=== PATIENT | female | born 1950 | race Caucasian/White ===

== ENCOUNTER 2017-07-25 12:32 | Emergency (ER) | payer OTHER ==
[~2017-07-25] VITALS: Ht 152.4 cm; Wt 72.6 kg
--- NOTE | ~2017-07-25 | EKG ---
[address] [address] ELECTROCARDIOGRAM REPORT Name: CARLI WOLF [id number] Admission: 07/25/17 Attend Phys: Discharge: Date of : 54 Report #: [id number] THIS REPORT FOR: //name// [facility] ED Test Date: 2017-07-25 Test Time: 13:20:32 Pat Name: CARLI WOLF Department: Room: Gender: F [employer] W[employer] Helper: Vashti BROWN : 1950 Requested By: Esa Dunbar Order Number: [id number] MD: Santiago Catherine Measurements Intervals [place] Rate: 60 P: -19 AL: 165 QRS: 16 QRSD: 101 T: 5 QT: 438 QTc: 438 Interpretive Statements Sinus rhythm No previous ECG available for comparison Electronically Signed On 07-25-2017 14:04:53 INFORMATICIST by Santiago Catherine [email or web address] <ELECTRONICALLY SIGNED> By: Santiago Catherine MD 07/25/17 1404 1320 1320 Santiago Catherine MD /FAHAD
[2017-07-25 13:18] LABS: HEMATOCRIT 39.8 % (37.0-47.0); HEMOGLOBIN 13.7 gm/dL (12.0-15.0); MCH 30.4 pg (26.0-34.0); MCHC 34.4 g/dL (28.0-37.0); MCV 88.3 fL (80.0-100.0); RBC 4.5 mil/uL (4.20-5.00); RDW 12.9 % (10.5-14.5); WBC 8.7 thou/uL (4.0-11.0)
[2017-07-25 13:27] LABS: CALCIUM 9.2 mg/dL (8.5-10.1); CREATININE 0.8 mg/dL (0.6-1.0); POTASSIUM 3.2 mmol/L (3.5-5.1)
[2017-07-25 13:33] LABS: TOTAL BILIRUBIN 0.6 mg/dL (<0.1-1.0); TOTAL PROTEIN 7.4 g/dL (6.4-8.2)
== END 2017-07-25 14:50 | disposition home or self-care (01) ==
LOC: ER 12:32
PROVIDERS: Emergency Medicine
DX: R19.7 Diarrhea, unspecified (principal); I10 Essential (primary) hypertension; E03.9 Hypothyroidism, unspecified; Z90.710 Acquired absence of both cervix and uterus; Z88.5 Allergy status to narcotic agent; Z88.6 Allergy status to analgesic agent; Z88.8 Allergy status to other drugs, medicaments and biological substances